=== PATIENT | male | born 1945 | race Caucasian/White ===

== ENCOUNTER 2018-02-12 08:12 | Outpatient (RCR) | payer MEDICARE, OTHER | END 2018-05-13 | disposition home or self-care (01) | LOC: WSST | DX: R13.10 Dysphagia, unspecified (principal) ==

== ENCOUNTER → 2018-02-12 | Outpatient (CLI) | payer MEDICARE | LOC: COL.RAD 10:01 | DX: R13.10 Dysphagia, unspecified (principal) | CPT/HCPCS: G8996-GN; G8997-GN; G8998-GN ==